=== PATIENT | female | born 2000 | race Caucasian/White ===

== ENCOUNTER 2024-03-04 12:39 | Emergency (ER) | payer SELFPAY ==
[2024-03-04 12:46] VITALS: BP 94/51; PULSE 87; RESP 18; TEMP 98.3; BMI 25.8
[2024-03-04] MEDS ORDERED: ACETAMINOPHEN 500 MG TABLET (FP) ONE (13:36)
[2024-03-04] MEDS: ACETAMINOPHEN 500 MG TABLET (FP) PO ONE (13:37)
[2024-03-04 13:46] LABS: URINE BILIRUBIN NEGATIVE (NEGATIVE); URINE COLOR YELLOW; URINE GLUCOSE (UA) NEGATIVE (NEGATIVE); URINE KETONE NEGATIVE (NEGATIVE); URINE LEUK ESTERASE NEGATIVE (NEGATIVE); URINE NITRITE NEGATIVE (NEGATIVE); URINE PROTEIN NEGATIVE (NEGATIVE); URINE UROBILINOGEN 0.2 mg/dL (0.2-1.0)
[2024-03-04 13:50] LABS: HCG,QUALITATIVE URINE Negative
[2024-03-04 14:12] LABS: BASO % 0.4 % (0-2.0); EOS % 0.2 % (0-4.5); HEMATOCRIT 37.3 % (32.4-45.2); HEMOGLOBIN 12.5 GM/dL (10.7-15.3); LYMPH % 13.7 % (8-40); MCH 29.4 pg (25.7-33.7); MCHC 33.5 g/dl (32.0-36.0); MEAN CELL VOLUME 87.7 fl (80-96); MEAN PLT VOLUME 7.4 fl (7.5-11.1); MONO % 6.7 % (3.8-10.2); PLATELET COUNT 269 10^3/uL (134-434); RBC 4.26 M/mm3 (3.60-5.2); RDW 12.7 % (11.6-15.6)
[2024-03-04 14:48] LABS: ALBUMIN 3.9 g/dl (3.4-5.0); CALCIUM 9.2 mg/dL (8.5-10.1)
[2024-03-04 14:49] LABS: BLOOD UREA NITROGEN 7.3 mg/dL (7-18)
[2024-03-04 14:52] LABS: BILIRUBIN,TOTAL 0.6 mg/dL (0.2-1); CREATININE 0.5 mg/dL (0.55-1.3); TOT PROT 7.2 g/dl (6.4-8.2)
[2024-03-04] MEDS ORDERED: IBUPROFEN 600 MG TABLET (FP) PO ONE (18:19)
[2024-03-04] MEDS: IBUPROFEN 600 MG TABLET (FP) PO ONE (18:20)
[2024-03-06 09:58] LABS: URINE APPEARANCE CLEAR
== END 2024-03-04 18:17 | disposition home or self-care (01) ==
LOC: JER 12:39
DX: D27.1 Benign neoplasm of left ovary (principal); R51.9 Headache, unspecified; R10.31 Right lower quadrant pain; R10.32 Left lower quadrant pain; R14.0 Abdominal distension (gaseous)
CPT/HCPCS: 36415; 76830-TC; 80053; 81003; 84703; 85025; 87086; 99284-25